=== PATIENT | female | born 1970 | race Caucasian/White ===

== ENCOUNTER 2023-10-30 07:13 | Emergency (ER) | payer BC, SELFPAY ==
[2023-10-30 07:27] VITALS: BP 143/87
[2023-10-30 07:45] LABS: % Basophils 0.9 % (0-2); % Eosinophils 3.3 % (0-6); % Immature Granulocytes 0.2 % (0-0.5); % Monocytes 9.8 % (1.7-9.3); % Neutrophils 48.8 % (42.2-75.2); Absolute Eosinophils 0.2 10^3/uL (0-0.7); Absolute Lymphocytes 1.7 10^3/uL (1.2-3.4); Absolute Monocytes 0.4 10^3/uL (0.1-0.6); Absolute Neutrophils 2.2 10^3/uL (1.4-6.5); Hematocrit 40.7 % (37.0-47.0); Hemoglobin 13.6 g/dL (12.0-16.0); Mean Corp Hgb Conc. 33.4 g/dL (33.0-37.0); Mean Corpuscular Hgb 30.7 pg (27.0-31.0); Mean Corpuscular Volume 91.9 fL (81.0-99.0); Mean Platelet Volume 9.7 fL (7.4-10.4); Nucleated Red Blood Cells % 0 %; Platelet Count 237 10^3/uL (130-400); Red Blood Cell Count 4.43 10^6/uL (4.20-5.40); Red Cell Dist. Width 12.3 % (11.5-14.5); White Blood Cell Count 4.5 10^3/uL (4.8-10.8)
[2023-10-30 08:05] LABS: ALT (SGPT) 30 U/L (0-35); AST (SGOT) 27 U/L (14-36); Albumin 3.9 g/dl (3.5-5.0); Alkaline Phosphatase 94 U/L (38-126); Blood Urea Nitrogen 16 mg/dl (7-17); Calcium 10.2 mg/dl (8.4-10.2); Carbon Dioxide 27 mmol/L (22-30); Chloride 108 mmol/L (98-107); Glucose 101 mg/dl (70-99); Potassium 4.4 mmol/L (3.5-5.1); Sodium 142 mmol/L (135-145); Total Bilirubin 1.5 mg/dl (0.2-1.3); Total Protein 6.7 g/dl (6.3-8.2); eGFR > 60.00
[2023-10-30 08:11] LABS: Troponin I < 0.012 ng/ml
--- NOTE | 2023-10-30 10:39 | ED.GENMED ---
History of Present Illness
General
Chief Complaint: Blood Pressure Problem
Source: patient
Exam Limitations: none
Time Seen by Provider: 10/30/23 10:26
Nursing documentation reviewed up to this point in time: agreed with
Travel History
Have you had any contact with someone who has COVID-19?: No
Do you have any symptoms of coronavirus? Fever > 100 degrees, chills, cough, shortness of breath, sore throat, loss of taste or smell, muscle aches, or headache?: No
History of Present Illness
History of Present Illness:
53-year-old female with past medical history of mitral regurgitation, tachycardia, hypertension presents to the emergency room for evaluation of hypertension and an episode of palpitations. Patient reports that she was in her normal state of health
this morning when she woke up. She says that she took a shower and was going about her morning routine and she started to feel some sensation of a racing heart. She says she checked her vital signs and noted that her heart rate was elevated and
that her blood pressure was elevated more than usual that she says it peaked at 160/110. She says that she took her normal lisinopril and atenolol and decided to come to the hospital. She says that by the time she arrived here after about 30
minutes her symptoms had resolved. Blood pressure is normal here. She is currently asymptomatic. She denies any chest pain, shortness of breath, dizziness or any other complaints. She has her annual cardiology appointment today at 2 PM; she sees
a sample case porter for mitral regurgitation and sinus tachycardia.
Past History
Past History
ED Past Medical History: Valvular disease
ED Past Surgical History: Other (hysteroscopy and fibroid ablation); Negative Cardiac
Social History
Tobacco: Non-smoker
Alcohol: None
Drug: None
Personal:
Living: with family
Employment: Employed
Family History
Family History: Hypertension and CAD; Negative Early CAD
Review of Systems
Review of Systems
All Other Systems: ROS reviewed and negative except as documented in HPI and ROS
Constitutional: Denies fever
Respiratory: Denies cough or trouble breathing
Cardiac: Reports palpitations; Denies chest pain or diaphoresis
ABD/GI: Denies abdominal pain, nausea or vomiting
: Denies flank pain
Musculoskeletal: Denies neck pain or back pain
Neurological: Denies dizzy, headache, weakness or numbness
Phy Exam
Physical Exam
Physical Exam:
General: Awake, alert, oriented x3; no acute distress
Head: Normocephalic, atraumatic
Eyes: Conjunctiva normal
Throat: Airway intact, handling secretions
Neck: Trachea midline, supple without meningismus
Lungs: Clear to auscultation bilaterally, no wheezing, rales, rhonchi
Heart: Regular rate and rhythm, no murmurs, gallops, or rubs
Abd: Soft, non distended, nontender
Neuro: No gross deficits
Skin: no rash
Extremities: No edema in extremities, equal pulses in all extremities
Scores
Heart Failure Risk
Heart Failure Risk Score: Not Applicable
Heart Score for Chest Pain Patients
STEMI patient?: Not applicable
Withdrawal Assessment of Alcohol
Withdrawal Assessment Completed?: Not applicable
Course
Orders/Labs/Results
Orders:
Orders
10/30/23 07:19
Electrocardiogram (*1) Urgent
Reason for Study: Chest Pain
EKG- Treatment ONCE
10/30/23 07:36
Complete Blood Count/With Diff Urgent
Comprehensive Metabolic Panel Urgent
Troponin I Urgent
Abnormal Lab Results
10/30/23
07:36
WBC 4.5 L 10^3/uL
(4.8-10.8)
Monocytes % 9.8 H %
(1.7-9.3)
Chloride 108 H mmol/L
(98-107)
Glucose 101 H mg/dl
(70-99)
Total Bilirubin 1.5 H mg/dl
(0.2-1.3)
10/30/23 07:36
10/30/23 07:36
Vital Signs
Initial and Last Documented VS:
Initial Vital Signs
Temp Pulse Resp BP Pulse Ox
37.1 C 67 16 143/87 99
10/30/23 07:27 10/30/23 07:27 10/30/23 07:27 10/30/23 07:27 10/30/23 07:27
Last Documented Vital Signs
Temp Pulse Resp BP Pulse Ox
37.1 C 67 16 143/87 99
10/30/23 07:27 10/30/23 07:27 10/30/23 07:27 10/30/23 07:27 10/30/23 07:27
MDM/Problems Addressed
Differential Diagnosis Includes:
Palpitations: Dysrhythmia, anxiety, electrolyte derangement
MDM/Problems Addressed:
53-year-old female presents for evaluation after an episode of palpitations and hypertension that lasted for about 30 minutes and resolved when she took her normal home medications. Blood pressure 143/87 here rest of vitals all normal. She is
asymptomatic and has benign physical exam here. Her EKG shows sinus rhythm with no ectopy. She had labs sent in triage to screen for endorgan damage including a CBC and a CMP which were unremarkable and a troponin which was undetectable. Her
blood pressure has normalized she is stable for discharge at this point. She already has an appointment scheduled for 2 PM today with her normal sample case porter will follow-up regarding palpitations. She feels very comfortable with this plan. Spoke
about return precautions all questions answered.
Chronic conditions affecting care:
Hypertension
*Pulse Oximetry
Patient hypoxic: no
*EKG
Interpreted by ED Provider?: Yes
Heart Rate: 60
Rate: normal
Rhythm: sinus
Butternut: normal axis
Interval: normal interval
QRS Pattern: normal QRS
Ischemia: no ischemia
*Critical Care Note
Total Time (30-74mins, 75-104mins- exclusive of procedures): Not Applicable
Data Reviewed
Source: patient
ED Attending Note
-
Portions of this chart may have been created with voice recognition software.� Occasional wrong word or��sound alike� substitutions may have occurred due to the inherent limitations of voice recognition software.
Discharge Plan
Departure
Patient Disposition: Home (Routine Discharge)
Date of Disposition: 10/30/23
Time of Disposition: 10:38
Patient with high blood pressure during this ER visit?: Yes
Discharge Problem:
Hypertension, Palpitations
Instructions: Palpitations ED, BLOOD PRESSURE
Prescriptions:
No Action
atenolol 25 MG tablet
12.5 mg PO HS
multivitamin with folic acid [Tab-A-Yadira] 1 TABLET tablet
1 tab PO DAILY
lisinopril 10 MG tablet
10 mg PO HS
cholecalciferol (vitamin D3) 2,000 UNITS tablet
2,000 units PO DAILY
prednisone 50 mg tablet
50 mg PO DAILY Qty: 5 0RF
Stand Alone Forms: Return to Work
Activity Restrictions/Additional Instructions:
You should follow-up with your sample case porter as scheduled today at 2 PM.
Thank you for visiting the Emergency Department at [facility].
1. Please schedule a follow up appointment as directed. Call first thing tomorrow morning to make an appointment.
2. If indicated, please take your medications as instructed and indicated on discharge paperwork.
3. If any of your symptoms do not improve, or persist, or become more severe within 6-12 hours, please return to the emergency department for further care.
4. Please return to the emergency department if you develop a headache, neck pain/stiffness, fever greater than 100.4F, chest pain, shortness of breath, persistent nausea, vomiting, slurred speech, difficulty walking, numbness/tingling, weakness,
signs of infection or any other symptoms that are worrisome to you.
Please call [phone] if you have any questions.
Interventions
Interventions:
*Risk Screen - Suicide Last Done: 10/30/23 07:29
*General Assessment Last Done: 10/30/23 07:29
*Neglect/Abuse Screening Last Done: 10/30/23 07:29
ED- Cardiac Assessment Last Done: 10/30/23 10:40
ED- Neurological Assessment Last Done: 10/30/23 10:40
ED- Pulmonary Assessment Last Done: 10/30/23 10:40
Discharge Date and Time
Print Language: IRAQI
[2023-10-30 10:40] VITALS: BP 142/83
== END 2023-10-30 11:27 | disposition home or self-care (01) ==
LOC: EMR 07:13
PROVIDERS: Emergency Medicine; EMERGENCY PHYSICIAN Emergency Medicine; FAMILY PHYSICIAN Family Medicine
DX: I10 Essential (primary) hypertension (principal); R00.2 Palpitations; R07.9 Chest pain, unspecified; I34.0 Nonrheumatic mitral (valve) insufficiency; Z88.1 Allergy status to other antibiotic agents; Z88.0 Allergy status to penicillin; Z88.2 Allergy status to sulfonamides
CPT/HCPCS: 99283; 80053; 84484; 85025; 93005

== ENCOUNTER 2024-02-12 19:47 | Emergency (ER) | payer BC, SELFPAY ==
[2024-02-12 19:50] VITALS: BP 168/90
--- NOTE | 2024-02-12 20:30 | ED.SKININJ ---
HPI-Injury
General
Chief Complaint: Skin Problem
Source: patient
Exam Limitations: none
Time Seen by Provider: 02/12/24 20:19
Nursing documentation reviewed up to this point in time: agreed with
History of Present Illness-Injury
Is this injury a work related problem?: No
Is pt an associate of [facility]?: No
Initial Injury comments:
Patient to ED for eval of bleeding varicose vein LLe. She has multiple varicosities BLE. Unsure if she scratched site but states is suddenly started to squirt blood. She applied pressure and son brought her to ED. On exam bleeding has stopped.
Past History
Past History
ED Past Medical History: Valvular disease
ED Past Surgical History: Other (hysteroscopy and fibroid ablation); Negative Cardiac
Social History
Tobacco: Non-smoker
Alcohol: None
Drug: None
Personal:
Living: with family
Employment: Employed
Family History
Family History: Hypertension and CAD; Negative Early CAD
Review of Systems
Review of Systems
Allergies reviewed?: Yes
All Other Systems: ROS reviewed and negative except as documented in HPI and ROS
Constitutional: Reports no symptoms
Musculoskeletal: Reports no symptoms
Skin: Reports other (Bleeding varicose vein LLE)
Neurological: Reports no symptoms
Psychiatric: Reports no symptoms
Phy Exam
General Physical Exam
General Presentation: well appearing and no apparent distress
General age: appears stated age
General Skin: warm and dry
General Habitus: normal
Musculoskeletal Exam
Musculoskeletal Exam: full ROM and neuro vasc intact
Skin Exam
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 No bleeding on exam. PRessure dressing and cristy applied. SHe will continue to ice. Will return to ED if bleeding recurs.)
Psychiatric Exam
Psychiatric Exam: normal mood/affect
Course
Vital Signs
Initial and Last Documented VS:
Initial Vital Signs
Temp Pulse Resp BP Pulse Ox
98.2 F 87 18 168/90 96
02/12/24 19:50 02/12/24 19:50 02/12/24 19:50 02/12/24 19:50 02/12/24 19:50
Last Documented Vital Signs
Temp Pulse Resp BP Pulse Ox
98.2 F 87 18 168/ 96
02/12/24 19:50 02/12/24 19:50 02/12/24 19:50 02/12/24 19:50 02/12/24 19:50
*Critical Care Note
Total Time (30-74mins, 75-104mins- exclusive of procedures): Not Applicable
ED Attending Note
-
Portions of this chart may have been created with voice recognition software.� Occasional wrong word or��sound alike� substitutions may have occurred due to the inherent limitations of voice recognition software.
Discharge Plan
Departure
Patient Disposition: Home (Routine Discharge)
Date of Disposition: 02/12/24
Time of Disposition: 20:29
Patient with high blood pressure during this ER visit?: No
Condition: Good
Covid-19: Not Applicable
Discharge Problem:
Bleeding from varicose vein
Instructions: Varicose Veins (DC)
Prescriptions:
No Action
atenolol 25 MG tablet
12.5 mg PO HS
multivitamin with folic acid [Tab-A-Yadira] 1 TABLET tablet
1 tab PO DAILY
lisinopril 10 MG tablet
10 mg PO HS
cholecalciferol (vitamin D3) 2,000 UNITS tablet
2,000 units PO DAILY
prednisone 50 mg tablet
50 mg PO DAILY Qty: 5 0RF
Activity Restrictions/Additional Instructions:
Follow up with your family doctor.
Interventions
Interventions:
*General Assessment Last Done: 02/12/24 19:50
ED- Fall Risk Assessment Last Done: 02/12/24 20:49
*Nursing Disposition Last Done: 02/12/24 21:02
ED-Skin Assessment Last Done: 02/12/24 20:47
Discharge Date and Time
Discharge Date/Time: 02/12/24 21:03
Print Language: GREEK
== END 2024-02-12 21:03 | disposition home or self-care (01) ==
LOC: EMR 19:47
PROVIDERS: EMERGENCY PHYSICIAN Emergency Medicine; FAMILY PHYSICIAN Family Medicine
DX: I83.892 Varicose veins of left lower extremity with other complications (principal); I83.91 Asymptomatic varicose veins of right lower extremity; I38 Endocarditis, valve unspecified; Z88.1 Allergy status to other antibiotic agents; Z88.0 Allergy status to penicillin; Z88.2 Allergy status to sulfonamides
CPT/HCPCS: 99281

== ENCOUNTER 2024-09-02 21:39 | Emergency (ER) | payer BC, SELFPAY ==
[2024-09-02 21:42] VITALS: BP 150/96
[2024-09-02 22:24] VITALS: BMI 35.8
--- NOTE | 2024-09-02 23:15 | ED.GENMED ---
History of Present Illness
General
Chief Complaint: Back Pain
Source: patient
Exam Limitations: none
Time Seen by Provider: 09/02/24 23:01
Nursing documentation reviewed up to this point in time: agreed with
History of Present Illness
History of Present Illness:
54-year-old female with history of mitral valve regurgitation, tachycardia, hypertension presenting for right sided thoracic back pain that started around 7 PM. Patient says it began and was mild but got worse with intermittent sharp stabbing pains
but an underlying constant pain. She took ibuprofen about 8 PM and applied a heating pad. She does feel like it is now a 5 out of 10 and not significantly worse but has not gone away. It is worse with deep breathing but she does not feel short of
breath. There is no rash she has noticed. She does have known gallstones but previously had right upper quadrant pain with nausea vomiting when she had her 'gallbladder attack.'
She has not had any nausea or vomiting this time. Patient has never had a kidney stone. There is no urinary symptoms. She denies fever and chills, chest pain, recent surgery, recent travel, history of DVT or PE.
She does not smoke or drink. She has had recent vein therapy via the vein center, but ablation over superficial varicose vein 3 days ago
Past History
Past History
ED Past Medical History: HTN and Valvular disease
ED Past Surgical History: Other (hysteroscopy and fibroid ablation); Negative Cardiac
Social History
Tobacco: Non-smoker
Alcohol: None
Drug: None
Personal:
Living: with family
Employment: Employed
Family History
Family History: Hypertension and CAD; Negative Early CAD
Review of Systems
Review of Systems
Allergies reviewed?: Yes
All Other Systems: Not applicable
Phy Exam
Physical Exam
Physical Exam:
GENERAL: Alert , in no apparent distress, comfortable at rest
HEAD: NCAT
NECK: no midline tenderness, active ROM intact, no paraspinal muscle tenderness;
CARDIAC: Regular rate and rhythm, no edema
LUNGS: Clear breath sounds bilaterally, no acute respiratory distress, no wheezes/rales/rhonchi
ABDOMEN: Soft, without focal tenderness, no r/g, no cvat, normal bowel sounds, nondistended
NEUROLOGICAL: Alert and oriented, no focal neuro deficits, CN intact, 5/5 strength, sensation intact,
SKIN: Warm and dry, right side of her back is diffusely mildly red, patient placed a heating pad on this area prior to arrival. There is no vesicles, she does have pain petechiae in her back and abdomen
Back: Nontender midline spine, right lower thoracic paraspinal muscle tenderness
PSYCH: Normal and appropriate interaction.
Course
Orders/Labs/Results
Orders:
Orders
09/02/24 23:12
Electrocardiogram (*1) Urgent
Reason for Study: Abdominal Pain
EKG- Treatment ONCE
09/02/24 23:41
Troponin I Urgent
09/02/24 23:43
Complete Blood Count/With Diff Urgent
Comprehensive Metabolic Panel Urgent
Lipase Urgent
Urinalysis Reflex To Culture Urgent
Date Specimen was Collected: 09/02/24
Time Specimen was Collected: 23:36
09/03/24 00:21
US Abdomen Complete/Upper Urgent
Comment:
Reason For Exam: R back pain, h/o gallstoens; eval hydro as well
09/03/24 00:24
CR Chest - 2 Views Urgent
Comment:
Reason For Exam: R sided back pain
09/03/24 01:26
Ketorolac [Toradol] 30 mg IV NOW STA
Abnormal Lab Results
09/02/24
23:43
Absolute Monos (auto) 0.8 H 10^3/uL
(0.1-0.6)
Monocytes % 11.0 H %
(1.7-9.3)
BUN 18 H mg/dl
(7-17)
Calcium 10.4 H mg/dl
(8.4-10.2)
Total Bilirubin 1.5 H mg/dl
(0.2-1.3)
09/02/24 23:43
09/02/24 23:43
Vital Signs
Initial and Last Documented VS:
Initial Vital Signs
Temp Pulse Resp BP Pulse Ox
36.8 C 71 20 150/96 99
09/02/24 21:42 09/02/24 21:42 09/02/24 21:42 09/02/24 21:42 09/02/24 21:42
Last Documented Vital Signs
Temp Pulse Resp BP Pulse Ox
36.8 C 64 18 137/71 98
09/02/24 21:42 09/03/24 01:02 09/03/24 01:02 09/03/24 01:02 09/03/24 01:02
MDM/Problems Addressed
Differential Diagnosis Includes:
MSK PAIN, gallstones, kidney stone, early shingles
MDM/Problems Addressed:
54 y/o F
known gallstone
here with R back pain
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
doesn't recall injury
hurts to touch, tired heating pad
now she is all red on her back without rash but from the heating pad
mild paraspinal muscle tenderness
normal ROM
abdomen soft and nontender
did just have a vein treated superficial ajnterior R lower leg
no calf mao/swelikng/tenderness, no h/o DVT
denies sob, cp, fever/chills/cough
ekg nonischemic
labs show t bili 1.5 (previous similar and also has had higher)
lipase normal
other LFTs normal
ua neg
US shows no hydro
gb has large stone in the neck
no signs cholecytisis
d/w dr rob
offered admission
pt declines
she wants to go home
her pain does seem more likely MSK or even early shingles
abdomen benign
given toradola nd now pain 06/05
d/c home
outpatient surgery f/u
*Critical Care Note
Total Time (30-74mins, 75-104mins- exclusive of procedures): Not Applicable
ED Attending Note
-
Portions of this chart may have been created with voice recognition software.� Occasional wrong word or��sound alike� substitutions may have occurred due to the inherent limitations of voice recognition software.
Discharge Plan
Departure
Patient Disposition: Home (Routine Discharge)
Date of Disposition: 09/03/24
Time of Disposition: 02:11
Patient with high blood pressure during this ER visit?: No
Condition: Fair
Covid-19: Not Applicable
Discharge Problem:
Back pain, Cholelithiasis
Instructions: Gallstones - ED discharge instructions
Prescriptions:
No Action
atenolol 25 MG tablet
12.5 mg PO HS
multivitamin with folic acid [Tab-A-Yadira] 1 TABLET tablet
1 tab PO DAILY
lisinopril 10 MG tablet
10 mg PO HS
cholecalciferol (vitamin D3) 2,000 UNITS tablet
2,000 units PO DAILY
prednisone 50 mg tablet
50 mg PO DAILY Qty: 5 0RF
Referrals:
UNKNOWN - PT DOES,NOT KNOW [Unknown Provider] -
Activity Restrictions/Additional Instructions:
YOUR PAIN COULD BE FROM THE LARGE GALLSTONE IN YOUR GALLBLADDER NECK
THERE WAS NO SIGN OF GALLBLADDER INFECTION TODAY
BUT IF YOU DEVELOPED WORSE PAIN, FEVER, AND/OR VOMITING YOU NEED TO RETURN IMMEDIATELY
FOR NOW:
YOU SHOULD TAKE MOTRIN EVERY 8 HOURS NEEDED
TRY A LOW FAT DIET
CALL YOUR SURGEON FOR A FOLLOW UP
RETURN FOR ANY CONCERNS: FEVER, WORSE PAIN, VOMITING, ETC
YOUR BILIRUBIN IS SLIGHTLY ELEVATED BUT HAS BEEN BEFORE AND IS LOWER THAN PREVIOUS
Interventions
Interventions:
*Risk Screen - Suicide Last Done: 09/02/24 22:22
*General Assessment Last Done: 09/02/24 22:22
*Neglect/Abuse Screening Last Done: 09/02/24 22:22
*ED- Fall Risk Assessment Last Done: 09/02/24 22:22
*ED COVID-19 Vaccine History Last Done: 09/02/24 22:22
*Nursing Disposition Last Done: 09/03/24 02:30
ED-Musculoskeletal Assessment Last Done: 09/02/24 22:25
Discharge Date and Time
Discharge Date/Time: 09/03/24 02:30
Print Language: CONGOLESE
[2024-09-02 23:52] VITALS: BP 125/81
[2024-09-02 23:52] LABS: % Basophils 0.7 % (0-2); % Eosinophils 2.6 % (0-6); % Immature Granulocytes 0.1 % (0-0.5); % Lymphocytes 33.9 % (20.5-51.1); % Neutrophils 51.7 % (42.2-75.2); Absolute Basophils 0.1 10^3/uL (0-0.2); Absolute Eosinophils 0.2 10^3/uL (0-0.7); Absolute Lymphocytes 2.3 10^3/uL (1.2-3.4); Absolute Monocytes 0.8 10^3/uL (0.1-0.6); Absolute Neutrophils 3.6 10^3/uL (1.4-6.5); Hematocrit 38.7 % (37.0-47.0); Hemoglobin 12.9 g/dL (12.0-16.0); Mean Corp Hgb Conc. 33.3 g/dL (33.0-37.0); Mean Corpuscular Hgb 30.6 pg (27.0-31.0); Mean Corpuscular Volume 91.7 fL (81.0-99.0); Mean Platelet Volume 9.7 fL (7.4-10.4); Nucleated Red Blood Cells % 0 %; Platelet Count 257 10^3/uL (130-400); Red Blood Cell Count 4.22 10^6/uL (4.20-5.40); Red Cell Dist. Width 12.7 % (11.5-14.5); White Blood Cell Count 6.9 10^3/uL (4.8-10.8)
[2024-09-02 23:59] LABS: Urine Albumin Negative (Neg - Trace); Urine Bilirubin Negative (Negative); Urine Character Clear (Clear); Urine Color Yellow; Urine Glucose Negative (Negative); Urine Ketone Negative (Negative); Urine Leukocyte Negative (Negative); Urine Nitrite Negative (Negative); Urine Occult Blood Negative (Negative); Urine Urobilinogen Negative (Neg - 1+)
[2024-09-03 00:17] LABS: ALT (SGPT) 24 U/L (0-35); AST (SGOT) 21 U/L (14-36); Albumin 3.8 g/dl (3.5-5.0); Alkaline Phosphatase 103 U/L (38-126); Blood Urea Nitrogen 18 mg/dl (7-17); Calcium 10.4 mg/dl (8.4-10.2); Carbon Dioxide 27 mmol/L (22-30); Chloride 107 mmol/L (98-107); Estimated Creatinine Clearance 124 ml/min; Glucose 98 mg/dl (70-99); Lipase 108 U/L (23-300); Potassium 4.1 mmol/L (3.5-5.1); Sodium 137 mmol/L (135-145); Total Bilirubin 1.5 mg/dl (0.2-1.3); Total Protein 6.6 g/dl (6.3-8.2); eGFR > 60.00
[2024-09-03 00:38] LABS: Troponin I < 0.012 ng/ml
[2024-09-03 01:02] VITALS: BP 137/71
[2024-09-03] MEDS: TORADOL 30 MG IV (01:41)
== END 2024-09-03 02:30 | disposition home or self-care (01) ==
LOC: EMR 21:39
PROVIDERS: Physician Assistant; EMERGENCY PHYSICIAN Emergency Medicine; FAMILY PHYSICIAN Family Medicine
DX: M54.6 Pain in thoracic spine (principal); K80.20 Calculus of gallbladder without cholecystitis without obstruction; I10 Essential (primary) hypertension
CPT/HCPCS: 99285; 96374; 71046; 76700; 80053; 81003; 83690; 84484; 85025; 93005